=== PATIENT | female | born 1980 | race African-American/Black ===

== ENCOUNTER 2017-06-08 14:44 | Emergency (ER) | payer OTHER, SELFPAY ==
[2017-06-08] MEDS ORDERED: Ibuprofen 800 MG TAB ONE (14:54)
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
== END 2017-06-08 15:51 | disposition home or self-care (01) ==
LOC: NAV ERS 14:44
DX: S23.3XXA Sprain of ligaments of thoracic spine, initial encounter (principal); S80.02XA Contusion of left knee, initial encounter; E03.9 Hypothyroidism, unspecified; F17.210 Nicotine dependence, cigarettes, uncomplicated; Z79.899 Other long term (current) drug therapy; V43.52XA Car driver injured in collision with other type car in traffic accident, initial encounter
CPT/HCPCS: 72072

== ENCOUNTER 2018-11-16 18:10 | Emergency (ER) | payer OTHER ==
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
== END 2018-11-16 19:03 | disposition home or self-care (01) ==
LOC: NAV ERS 18:10
DX: S93.402A Sprain of unspecified ligament of left ankle, initial encounter (principal); E03.9 Hypothyroidism, unspecified; F17.210 Nicotine dependence, cigarettes, uncomplicated; F17.290 Nicotine dependence, other tobacco product, uncomplicated; X50.1XXA Overexertion from prolonged static or awkward postures, initial encounter; Z79.899 Other long term (current) drug therapy

== ENCOUNTER 2018-12-18 01:54 | Emergency (ER) | payer OTHER | END 2018-12-18 02:22 | disposition home or self-care (01) | LOC: NAV ERS 01:54 | DX: H92.01 Otalgia, right ear (principal); E03.9 Hypothyroidism, unspecified; F17.210 Nicotine dependence, cigarettes, uncomplicated; Z79.899 Other long term (current) drug therapy | CPT/HCPCS: 99281 ==

== ENCOUNTER 2019-05-26 05:53 | Emergency (ER) | payer OTHER, SELFPAY ==
[2019-05-26 06:37] LABS: Band 10 % (5-11); Hemoglobin 11.3 g/dL (12.0-16.0); Lymphocytes 24 % (21-51); MDiff Complete? YES; Mean Corpuscular HGB CONC 31.6 g/dL (32.0-36.0); Mean Corpuscular Volume 88.9 fL (78.0-98.0); Mean Platelet Volume 7.7 fL (7.4-10.4); Monocytes 5 % (0-10); Neutrophil 61 % (42-75); Platelet Count 364 thou/uL (130-400); Platelet Morphology Comment Appears Adequate; RBC Distribution Width 14.5 % (11.5-14.5); RBC Morphology Normal; Red Blood Cell (RBC) Count 4.04 mill/uL (4.20-5.40); White Blood Cell (WBC) Count 11.1 thou/uL (4.8-10.8)
[2019-05-26 06:43] LABS: ALT (SGPT) 14 U/L (8-55); AST (SGOT) 16 U/L (5-34); Alkaline Phosphatase 72 U/L (40-110); Anion Gap 13 mmol/L (10-20); BUN (Urea Nitrogen) 10 mg/dL (7.0-18.7); Bilirubin, Total 0.1 mg/dL (0.2-1.2); Calc. Creatinine Clearance 0 mL/min (70-130); Calcium 8.8 mg/dL (7.8-10.44); Carbon Dioxide 23 mmol/L (22-29); Chloride 105 mmol/L (98-107); Estimated GFR-MDRD Greater than 90; Globulin 3.7 g/dL (2.4-3.5); Glucose 103 mg/dL (70-105); Protein, Total 7.7 g/dL (6.0-8.3); Sodium 137 mmol/L (136-145)
[2019-05-26] MEDS ORDERED: Ketorolac Tromethamine 30 MG/ML VIAL ONE (06:56)
[2019-05-26] MEDS ORDERED: Ketorolac Tromethamine 60 MG/2 ML VIAL ONE (06:59)
--- NOTE | 2019-05-26 07:37 | RAD ---
EXAM: Chest 2 views: HISTORY: Chest pain COMPARISON: None. FINDINGS: There is a normal-sized cardiomediastinal silhouette. There is no evidence of consolidation, mass, or pleural effusion. The bones are unremarkable. IMPRESSION: No evidence of acute cardiopulmonary disease
== END 2019-05-26 07:25 | disposition home or self-care (01) ==
LOC: NAV ERS 05:53
DX: M94.0 Chondrocostal junction syndrome [Tietze] (principal); E03.9 Hypothyroidism, unspecified; F17.210 Nicotine dependence, cigarettes, uncomplicated; F17.290 Nicotine dependence, other tobacco product, uncomplicated; Z79.899 Other long term (current) drug therapy
CPT/HCPCS: 71046; 80053; 84443; 84484; 85025; 93005; 96372; J1885

== ENCOUNTER 2023-12-04 19:16 | Emergency (ER) | payer OTHER ==
[2023-12-04] MEDS ORDERED: Ibuprofen 200 MG TAB ONE (20:12)
[2023-12-04] MEDS ORDERED: Lidocaine 4% Patch TD SCH (20:30)
[2023-12-05] MEDS ORDERED: Transdermal Patch Removal TOP SCH (08:30)
== END 2023-12-04 21:15 | disposition home or self-care (01) ==
LOC: NAV ERS 19:16
DX: M62.830 Muscle spasm of back (principal); E03.9 Hypothyroidism, unspecified; F17.210 Nicotine dependence, cigarettes, uncomplicated; X50.0XXA Overexertion from strenuous movement or load, initial encounter; Y99.0 Civilian activity done for income or pay; Z79.899 Other long term (current) drug therapy
CPT/HCPCS: 99283

== ENCOUNTER 2025-04-04 12:59 | Emergency (ER) | payer BC, OTHER ==
[2025-04-04] MEDS ORDERED: Naproxen 500 MG TAB ONE (13:47)
== END 2025-04-04 13:50 | disposition home or self-care (01) ==
LOC: NAV ERS 12:59
DX: T63.441A Toxic effect of venom of bees, accidental (unintentional), initial encounter (principal); E03.9 Hypothyroidism, unspecified; F17.210 Nicotine dependence, cigarettes, uncomplicated; Z79.890 Hormone replacement therapy
CPT/HCPCS: 99282